=== PATIENT | male | born 1935 | race Caucasian/White ===

== ENCOUNTER → 2022-08-26 10:26 | Outpatient (CLI) | payer MEDICARE, SELFPAY ==
[2022-08-26 10:59] LABS: COVID19 -Nasal RAPID Negative (Negative)
== END ==
PROVIDERS: PCP Internal Medicine; Visit Provider Specialist
DX: Z20.822 Contact with and (suspected) exposure to COVID-19 (principal)
CPT/HCPCS: 87635; C9803

== ENCOUNTER 2022-08-28 08:26 | Day surgery (SDC) | payer MEDICARE, SELFPAY ==
[2022-08-28 10:15] VITALS: BP 165/78; PULSE 62; RESP 16; TEMP 36.5; O2SAT 99; BMI 29.2
--- NOTE | 2022-08-28 11:10 | SUR.PREOP ---
1110 - Patient's surgery delayed due to other emergency procedures. Charge Nurse Melanie discussed options with patient and patient decided to reschedule procedure for another date rather than have his procedure late tonight. Patient's IV removed and patient left building with family and all belongings in stable condition. Patient knows to make sure procedure gets rescheduled.
== END 2022-08-28 08:30 | disposition home or self-care (01) ==
PROVIDERS: PCP Internal Medicine; Referring Provider Specialist; Visit Provider Specialist
DX: Z53.9 Procedure and treatment not carried out, unspecified reason (principal)
CPT/HCPCS: 82962

== ENCOUNTER 2023-08-23 06:34 | Day surgery (SDC) | payer MEDICARE, SELFPAY ==
[2023-08-18 12:01] VITALS: BMI 29.0
[2023-08-23] VITALS (10 sets, daily range): BP systolic 125–173; BP diastolic 65–88; PULSE 57–68; RESP 14–18; TEMP 36.1–36.6; O2SAT 93–98; BMI 28.7
--- NOTE | 2023-08-23 | PATH_ITS ---
[facility] [place] Accession Number: [id number] No. of containers..01 Tissue . 01 Material submitted: . spermatic cord - LEFT SPERMATOCELE . 01 Diagnosis: Left Spermatocele, Spermatocelectomy: Findings consistent with spermatocele. Negative for malignancy. MRV 09/02/2023 1611 Local . 01 Comment: A cyst with cuboidal bland, largely flattened lining epithelium is present, compatible with spermatocele. No cytologic atypia or malignancy. . 01 Electronically signed: . Dyana Roblero MD, Pathologist NPI- [id number] . 01 Gross description: . The specimen is received in formalin labeled with the patient's name, , and left spermatocele, consists of a smart, membranous soft tissue fragment measuring 3.2 x 0.6 x 0.6 cm. The external surface is inked green, and sectioning reveals a smart, membranous cut surface with no lesions identified. Principal Secretary sections are submitted in cassette A1. ([id number]) /MRV 08/24/2023 1633 Local . 01 Pathologist provided ICD-10: N43.40, K40.90 . 01 CPT . 879121 Specimen Comment: A courtesy copy of this report has been sent to [phone] Performed at: 01 [facility] [address] [place] [address], [place], [place] [id number] MD Butch Cox MD Phone: [phone]
[2023-08-23] MEDS: LACTATED RINGERS 1,000 ML 42 ML IV ×2 (07:12→08:43)
--- NOTE | 2023-08-23 07:41 | PM.PREOP ---
Pre-operative Note Interval Note History & Physical reviewed/Exam performed by Physician: Yes Changes to H&P: No
[2023-08-23] MEDS: CEFAZOLIN 2 GM/100 ML PREMIX 100 ML IV (08:10)
[2023-08-23] MEDS: ACETAMINOPHEN IV 1,000 MG/100 ML VIAL 400 MG IV (08:30)
[2023-08-23] MEDS: BUPIVACAINE 0.25% (PF) 30 ML, EPINEPHrine 0.15 MG INJ (08:32)
[2023-08-23] MEDS: NEOMYCIN/POLYMYXIN/BACITRA UD OINT 2 EACH TOP (08:33)
--- NOTE | 2023-08-23 08:37 | SUR.OPER ---
Supine on padded OR bed, head on pillow, arms secured on padded arm boards at <90 degrees abduction, legs uncrossed, lower legs, tape over blanket over thighs to accommodate operative site. Gel pad under bilateral heels.
[2023-08-23] MEDS: BUPIVACAINE LIPOSOME 266 MG/20 ML VIAL INJ (10:25)
--- NOTE | 2023-08-23 11:05 | PM.OP.1 ---
Operative Date/Time/Diagnoses Date of procedure: 08/23/23 Time of procedure: 10:35 Pre-op diagnosis: 1. Right inguinal hernia. 2. Left spermatoceles. Post-op diagnosis: same Procedure & Clinicians Procedure: 1. Repair of right direct and indirect inguinal hernias with mesh (2 x 4 inch Bard polypropylene). 2. Left spermatocelectomy. Same procedure as scheduled: Yes Indications: 1. Symptomatic right inguinal hernia. 2. Symptomatic left spermatocele. Surgeon: Tulio Thapa Click Yes if Unassisted: Yes Anesthesia Type: General Operative Notes Findings: 1. In directing hernia extending to the external ring. 2. Structural defect of right inguinal floor consistent with direct inguinal hernia. 3. Multiple left spermatoceles. Closure Type: primary Specimen(s): other (Left spermatocele sacs) Estimated Blood Loss (mL): 2 Blood products transfused: none Procedure in detail: The patient was positioned in supine and administered general anesthesia. The lower abdomen, genitalia, and groin were then prepped and draped in sterile fashion. Solution of 0.25% Marcaine with epinephrine was then used to infiltrate the midline scrotal skin and dartos fascia. A midline incision was then made with a needle-tip cautery pen and careful dissection was taken through the skin and dartos fascia to the level of the tunica vaginalis. Tunica vaginalis was then carefully open and inspection revealed multiple spermatoceles measuring up to at least 4 cm. Meticulous blunt, cautery, and sharp dissection were then utilized to develop appropriate plane to circum financially isolate the cluster of fluid collections. Eventually the neck was identified. The spermatocele sacs were then amputated and submitted to pathology for routine examination. A 4-0 Monocryl was used to ligate and over-sew the neck of the spermatocele. Hemostasis was excellent. The testicle repositioned within the left hemiscrotum anatomically. Variably the dartos fascia was then reapproximated with running 2-0 Monocryl. A stabilizing suture was placed in the tunica albuginea anteriorly and then to the anterior dartos fascia before closure of dartos fascia. Exparel was infiltrated into dartos fascia and the cutaneous layer. The skin was then reapproximated with 4-0 Monocryl utilizing a horizontal mattress technique. The skin was cleaned and dried and antibiotic ointment was then applied to the incision line. Fluff gauze were then applied. This portion of the patient's anatomy was then draped off and attention was turned to the right inguinal canal. The skin and subcutaneous tissue overlying the right inguinal canal was then infiltrated with a solution of 0.25% Marcaine with epinephrine. An oblique incision was made sharply and the subcutaneous fat and Lupillo's fascia were then divided using blunt and cautery technique. The anterior surface of the external oblique fascia was then exposed and an incision was made parallel to its fibers the full length of the inguinal canal. Spermatic cord was then carefully mobilized using blunt technique and elevated. The cremasteric fascia was then carefully divided longitudinally using blunt technique. A somewhat thickened hernia sac was encounter that extended to the level of the external ring. Meticulous blunt, cautery, and sharp dissection was then utilized to separate the hernia sac from the spermatic cord structures and was reflected superiorly and laterally. Particular attention to isolate the sac was conducted at the internal ring. The under direct visualization the sac was engaged distally with a hemostatic clamp and twisted repetitively and tightly 2 point within the abdominal preperitoneal space. A high ligation was then conducted utilizing 2-0 PDS. The sac was not amputated. The sac proximal to the ligature was infiltrated with Exparel. The structure was then dunked back within the preperitoneal space and 2 interrupted 2-0 PDS were then utilized to reapproximate the enlarged internal ring. Floor of the canal was then assessed and was found to be deficient although no obvious protrusion was visualized in the supine position and patient under anesthetic. Decision was made to augment the strength of the floor utilizing a 2 in x 4 in segment of flat Bard polypropylene mesh. The corners of the mesh were rounded. 3-0 Prolene was then utilized to secure inferior medial corner to the pubic tubercle and then intermittently along Poupart's ligament inferiorly. Laterally, the mesh was divided and appropriate length to accommodate the cord at its exit from the internal ring. Stellate incisions were then made to further accommodate the cord structures. An additional interrupted suture was placed superiorly and medially. Finally, crossing tails were created and extended laterally. A single polypropylene was applied at there intersection. Gentle traction was applied to the right testicle and the cord was repositioned anatomically within the canal. The overlying rectus fascia was then closed with running 2 0 PDS. Exparel was used to infiltrate the rectus fascia layer. Was also utilized to infiltrate Lupillo's fascia layer and the skin. Additional Exparel was applied superiorly and inferiorly at the level of the skin at the lateral margin of the incision, effectively created a cutaneous field block. Lupillo's fascia was then closed using running 2-0 PDS. The skin was then reapproximated using subcuticular technique of 4-0 Monocryl. Skin surface was then cleaned and dried and a small strip of tailored Telfa gauze was then applied over the incision. Over this a medium Tegaderm transparent and bio occlusive dressing was applied to finish the dressing arrangement. The patient was then awakened, transferred to [facility], and then transferred to recovery in stable condition. Complications: none Post-operative Condition: stable Disposition: PACU Plan for aftercare: Discharge home.
--- NOTE | 2023-08-23 11:24 | SUR.PHASEI ---
Pt had bladder scan and it showed 643cc of urine in bladder. Pt had help and then he was able to void 150 cc of clear urine. Pt also had an EKg completed due to a bundle branch block per anesthesia. Pt. had no prior EKG.
== END 2023-08-23 12:30 | disposition home or self-care (01) ==
PROVIDERS: PCP Internal Medicine; Referring Provider Specialist; Visit Provider Specialist
PROC: (CPT 49505; principal; 2023-08-23 07:45)
PROC: (CPT 49505; 2023-08-23 07:45)
DX: K40.90 Unilateral inguinal hernia, without obstruction or gangrene, not specified as recurrent (principal); N43.42 Spermatocele of epididymis, multiple
CPT/HCPCS: 49505; 54840; 93005; C9290; J0131; J0171; J0690; J1100; J2405; J2704; J3010